=== PATIENT | female | born 1965 | race Asian ===

== ENCOUNTER 2017-06-24 15:09 | Emergency (ER) | payer OTHER, SELFPAY ==
[~2017-06-24] VITALS: Ht 157.5 cm; Wt 63.6 kg
[~2017-06-24 15:09] MED LIST: ALBU8.5H8 IH; BENZ-51 PO; DSS100 PO; FERR-89 PO; PROME5L PO; SULF1TAB42 PO
[2017-06-24 15:15] VITALS: BP 119/75
[2017-06-24] MEDS ORDERED: CHOL200016 PO (15:18)
[2017-06-24] MEDS ORDERED: ATOR20TA65 PO (15:18)
[2017-06-24] MEDS ORDERED: ACETAMINOPHEN 325 MG TABLET PO ONE (16:45)
== END 2017-06-24 17:04 | disposition home or self-care (01) ==
LOC: EMS 15:12
DX: J11.1 Influenza due to unidentified influenza virus with other respiratory manifestations (principal); E78.00 Pure hypercholesterolemia, unspecified
CPT/HCPCS: 71020; 99284

== ENCOUNTER → 2022-06-09 | Outpatient (CLI) | payer OTHER ==
[~2022-06-09] MED LIST changes: -ALBU8.5H8 IH; +ATOR20TA65 PO; -BENZ-51 PO; +CHOL200016 PO; -DSS100 PO; -FERR-89 PO; +IOHEXOL 350 MG/ML 100 ML VIAL ONE; -PROME5L PO; +SODIUM CHLORIDE 0.9% 100 ML ONE; -SULF1TAB42 PO
== END | disposition home or self-care (01) ==
LOC: RADMN 07:51
PROVIDERS: ATTEND Legal Medicine
DX: R31.9 Hematuria, unspecified (principal); K76.0 Fatty (change of) liver, not elsewhere classified
CPT/HCPCS: 74178; Q9967; J7050